=== PATIENT | female | born 1950 | race Caucasian/White ===

== ENCOUNTER 2020-07-10 08:19 | Outpatient (CLI) | payer MEDICARE, SELFPAY ==
--- NOTE | 2020-07-10 08:26 | MM_ITS ---
WS: [id number] SCREENING DIGITAL MAMMOGRAM WITH CAD HISTORY: SCREENING COMPARISON: 03/14/2019, 08/04/2017 and 03/23/2016 Bilateral CC and MLO views submitted. Computer aided detection analyzed. Breast composition: There are scattered areas of fibroglandular density. Asymmetry in the upper-outer quadrant of the LEFT breast has increased in size and conspicuity since 2019. There are additional b ilateral nodules which are stable in each breast. MM/[place] [id number] IMPRESSION: BI-RADS: 0-Incomplete: Need additional imaging evaluation FOLLOW UP: Need Additional Imaging LEFT breast: Spot compression views (CC and MLO). True ML. Ultrasound to follow if abnormality persists.
== END 2020-07-10 08:20 | disposition home or self-care (01) ==
LOC: RADSHAW 08:23
PROVIDERS: Family Provider Internal Medicine; Visit Provider Internal Medicine
DX: Z12.31 Encounter for screening mammogram for malignant neoplasm of breast (principal); N64.89 Other specified disorders of breast
CPT/HCPCS: 77067

== ENCOUNTER 2020-07-23 08:15 | Outpatient (CLI) | payer MEDICARE, SELFPAY ==
--- NOTE | 2020-07-23 08:21 | US_ITS ---
WS: [id number] ADDITIONAL VIEWS LEFT MAMMOGRAM LEFT BREAST ULTRASOUND HISTORY: INCONCLUSIVE MAMMO COMPARISON: 07/10/2020 and 03/14/2019 and 08/04/2017 LEFT MAMMOGRAM: Spot compression views and true ML. Asymmetry in the upper outer quadrant of the LEFT breast nearly completely resolves. There is persist ent linear increased density on the MLO projection only. Additional benign lymph node in the upper ou ter quadrant. LEFT BREAST ULTRASOUND 2-D and color Doppler imaging submitted. No suspicious masses or shadowing identified by ultrasound in the upper outer quadrant. There is a be nign lymph node at 1:00. US/US breast LT limited* [id number] IMPRESSION: BI-RADS: 2-Benign FOLLOW UP: 1 Year Follow-up
== END 2020-07-23 08:16 | disposition home or self-care (01) ==
LOC: RADSHAW 08:18
PROVIDERS: Family Provider Internal Medicine; PCP Internal Medicine; Visit Provider Internal Medicine
DX: R92.2 Inconclusive mammogram (principal); N64.89 Other specified disorders of breast
CPT/HCPCS: 76642; 77065

== ENCOUNTER 2020-12-24 12:59 | Outpatient (CLI) | payer MEDICARE, SELFPAY ==
--- NOTE | 2020-12-24 13:08 | XR_ITS ---
WS: [id number] DEXA (DUAL ENERGY X-RAY ABSORPTIOMETRY) Bone mineral density was performed using a [employer] machine. HISTORY: POST MENOPAUSAL COMPARISON: None available. Left forearm BMD: 0.942 g/cm2. T score: 0.8 Z score: 2.7 Total hip BMD: Left: 0.911 g/cm2. T score: -0.8 Z score: 0.0 Right: 0.847 g/cm2. T score: -1.3 Z score: -0.5 10 year probability of a major osteoporotic fracture is 10%. XR/XR DEXA axial skeleton* [id number] IMPRESSION: OSTEOPENIA based upon the WHO classification for females.
== END 2020-12-24 13:00 | disposition home or self-care (01) ==
PROVIDERS: PCP Internal Medicine; Visit Provider Physician Assistant
DX: Z78.0 Asymptomatic menopausal state (principal); M85.80 Other specified disorders of bone density and structure, unspecified site
CPT/HCPCS: 77080

== ENCOUNTER 2021-09-25 08:40 | Outpatient (CLI) | payer MEDICARE, SELFPAY ==
--- NOTE | 2021-09-25 08:55 | MM_ITS ---
WS: [id number] VIEWS: MLO and CC views both breasts. 3D digital tomosynthesis is also included in this exam. Comparison made with prior exam of 03/15/2015, 03/23/2016, 08/04/2017, 03/14/2019, 07/10/2020.. Findings: There was no sign of mass, architectural distortion or suspicious calcification in either breast. Sc attered fibroglandular densities MM/[place] [id number] Impression: BI-RADS: 2-Benign FOLLOW-UP: 1 Year Follow-up This mammogram was also analyzed by the Computer Aided Detection System R2 Imag e Sales Designer.
== END 2021-09-25 08:41 | disposition home or self-care (01) ==
PROVIDERS: PCP Internal Medicine; Visit Provider Internal Medicine
DX: Z12.31 Encounter for screening mammogram for malignant neoplasm of breast (principal)
CPT/HCPCS: 77063; 77067

== ENCOUNTER 2022-10-09 07:58 | Outpatient (CLI) | payer MEDICARE, SELFPAY ==
--- NOTE | 2022-10-09 08:08 | MM_ITS ---
WS: [id number] BILATERAL SCREENING DIGITAL TOMOSYNTHESIS MAMMOGRAM WITH CAD HISTORY: SCREENING COMPARISON: 09/25/2021, 07/10/2020 Bilateral CC and MLO views with tomosynthesis and synthetic mammography submitted. Computer aided det ection analyzed. Breast composition: There are scattered areas of fibroglandular density. No suspicious masses, microc alcifications or architectural distortion. Bilateral well circumscribed breast masses are probably ly mph nodes. No suspicious mass or calcification. MM/[place] [id number] IMPRESSION: BI-RADS: 2-Benign FOLLOW UP: 1 Year Follow-up
== END 2022-10-09 07:59 | disposition home or self-care (01) ==
PROVIDERS: PCP Internal Medicine; Visit Provider Internal Medicine
DX: Z12.31 Encounter for screening mammogram for malignant neoplasm of breast (principal)
CPT/HCPCS: 77063; 77067

== ENCOUNTER 2023-09-24 12:27 | Outpatient (CLI) | payer MEDICARE, SELFPAY ==
--- NOTE | 2023-09-24 12:31 | XR_ITS ---
WS: [id number] DEXA (DUAL ENERGY X-RAY ABSORPTIOMETRY) Bone mineral density was performed using a [employer] machine. HISTORY: POSTMENOPAUSAL COMPARISON: 12/24/2020 Left forearm BMD: 0.849 g/cm2. T score: -0.3 Z score: 1.9 Total hip BMD: Left: 0.909 g/cm2. T score: -0.8 Z score: 0.3 Right: 0.818 g/cm2. T score: -1.5 Z score: -0.4 10 year probability of a major osteoporotic fracture is 10.8%. Compared to the prior study from 12/24/2020. LEFT forearm bone mineral density has decreased by 9.9%. Bilateral hips bone mineral density has decreased by 1.7%. XR/XR DEXA axial skeleton* [id number] IMPRESSION: OSTEOPENIA based upon the WHO classification for females. Significant decrease in bone mineral density within the LEFT forearm since the prior study.
== END 2023-09-24 12:28 | disposition home or self-care (01) ==
LOC: RAD 12:27
PROVIDERS: PCP Internal Medicine; Visit Provider Internal Medicine
DX: Z78.0 Asymptomatic menopausal state (principal); M85.80 Other specified disorders of bone density and structure, unspecified site
CPT/HCPCS: 77080

== ENCOUNTER 2023-10-14 09:23 | Outpatient (CLI) | payer MEDICARE, SELFPAY ==
--- NOTE | 2023-10-14 09:33 | MM_ITS ---
WS: [id number] BILATERAL SCREENING DIGITAL TOMOSYNTHESIS MAMMOGRAM WITH CAD HISTORY: SCREENING COMPARISON: 10/09/2022, 09/25/2021 and 08/04/2017 Bilateral CC and MLO views with tomosynthesis and synthetic mammography submitted. Computer aided det ection analyzed. Breast composition: There are scattered areas of fibroglandular density. No suspicious masses, microc alcifications or architectural distortion. Bilateral well-circumscribed breast masses are reidentifie d. These are probably lymph nodes. No suspicious mass or calcification. MM/[place] [id number] IMPRESSION: BI-RADS: 2-Benign FOLLOW UP: 1 Year Follow-up
== END 2023-10-14 09:24 | disposition home or self-care (01) ==
LOC: RAD 09:24
PROVIDERS: PCP Internal Medicine; Visit Provider Internal Medicine
DX: Z12.31 Encounter for screening mammogram for malignant neoplasm of breast (principal); R92.323 Mammographic fibroglandular density, bilateral breasts; N63.20 Unspecified lump in the left breast, unspecified quadrant; N63.10 Unspecified lump in the right breast, unspecified quadrant
CPT/HCPCS: 77063; 77067

== ENCOUNTER → 2025-02-15 08:29 | Outpatient (BNVA) | payer MEDICARE, SELFPAY | PROVIDERS: PCP Internal Medicine; Referring Provider Electrodiagnostic Medicine; Visit Provider Specialist | DX: R20.0 Anesthesia of skin (principal); R20.2 Paresthesia of skin; M79.642 Pain in left hand | CPT/HCPCS: 95911 ==

== ENCOUNTER 2025-03-01 09:53 | Outpatient (CLI) | payer MEDICARE, SELFPAY ==
--- NOTE | 2025-03-01 09:59 | MM_ITS ---
WS: [id number] BILATERAL SCREENING DIGITAL TOMOSYNTHESIS MAMMOGRAM WITH CAD HISTORY: SCREENING COMPARISON: 10/14/2023, 10/09/2022, 03/14/2019 Bilateral CC and MLO views with tomosynthesis and synthetic mammography submitted. Computer aided detection analyzed. Breast composition: There are scattered areas of fibroglandular density. No suspicious masses, microcalcifications or architectural distortion. Long-term stability 7 mm well-circumscribed mass in the lateral inferior RIGHT breast. Benign lymph node upper outer quadrant LEFT breast. MM/MM scr tomosynthesis [id number] IMPRESSION: BI-RADS: 2 - Benign. FOLLOW UP: 1 Year Follow-up
== END 2025-03-01 09:54 | disposition home or self-care (01) ==
LOC: RAD 09:54
PROVIDERS: PCP Electrodiagnostic Medicine; Visit Provider Electrodiagnostic Medicine
DX: Z12.31 Encounter for screening mammogram for malignant neoplasm of breast (principal); R92.323 Mammographic fibroglandular density, bilateral breasts; N63.13 Unspecified lump in the right breast, lower outer quadrant; D36.0 Benign neoplasm of lymph nodes
CPT/HCPCS: 77063; 77067

== ENCOUNTER → 2025-03-13 10:15 | Outpatient (BNVA) | payer MEDICARE, SELFPAY | PROVIDERS: PCP Electrodiagnostic Medicine; Visit Provider Physician Assistant | DX: G56.03 Carpal tunnel syndrome, bilateral upper limbs (principal); G56.22 Lesion of ulnar nerve, left upper limb | CPT/HCPCS: 73130; 99204 ==

== ENCOUNTER 2025-04-23 06:59 | Day surgery (SDC) | payer MEDICARE, SELFPAY ==
[2025-04-23] VITALS (10 sets, daily range): BP systolic 128–177; BP diastolic 55–92; PULSE 64–86; RESP 12–20; TEMP 36.1–36.6; O2SAT 91–99; BMI 30.7
[2025-04-23] MEDS: acetaminophen 1,000 MG/100 ML PIGGYBACK 400 MG IV (07:31)
--- NOTE | 2025-04-23 07:49 | ANES.PREANE2 ---
Pre-Anesthetic Assessment Height/Weight: Height 5 ft 6 in Weight 190 lb Temp Pulse Resp BP Pulse Ox O2 Del Method 97.0 F L 81 17 128/80 95 Room Air 04/23/25 07:17 04/23/25 07:17 04/23/25 07:17 04/23/25 07:17 04/23/25 07:17 04/23/25 07:17 Preop Diagnosis: carapl/cubital tunnel syndrome Operation Date: 04/23/25 08:35 Proposed Procedures p Carpal Tunnel Release(Left) - Thomas Samantha, DO s Cubital Tunnel Release(Left) - Thomas Samantha, DO s Ulnar Nerve Transposition(Left) - Thomas Samantha, DO Was Beta Salvatore taken within 24 hours: N/A Was Clonidine taken within 24 hours: N/A Last intake: Intake Last Liquid Date 04/22/25 Last Liquid Time 07:30 Last Solid Date 04/22/25 Last Solid Time 07:30 Social No alcohol and No tobacco Exam alert, oriented x 3, clear to auscultation bilaterally and regular rate & rhythm Airway Submandibular: within normal limits Cervical ROM: within normal limits Mallampati: Class III Dentition: full Anesthetic Plan ASA status: 2 Anesthesia: MAC and Regional (specify below) Other: History of PONV NPO since yesterday evening History of GERD on Pepcid BMI 30 Hypertension on Amoride?HCTZ. Preop BP 128/80 Plan for MAC anesthesia with preop nerve block. Will wait to let nerve block set up to help with PONV and avoid general if possible Medications/Allergies Home Medications ?Medication ?Instructions ?Recorded ?Confirmed ?Last Taken ?Type alprazolam 0.5 mg tablet 0.5 mg PO TID 03/13/25 04/23/25 04/23/25 History amiloride 5 mg-hydrochlorothiazide 1 tab PO DAILY 03/13/25 04/23/25 04/22/25 History 50 mg tablet atorvastatin 20 mg tablet (Lipitor) 20 mg PO QPM 03/13/25 04/23/25 04/22/25 History brimonidine 0.1 % eye drops 1 drp ophthalmic (eye) Q8H 03/13/25 04/23/25 04/22/25 History escitalopram oxalate 10 mg tablet 10 mg PO DAILY 03/13/25 04/23/25 04/22/25 History famotidine 20 mg tablet 20 mg PO DAILY 03/13/25 04/23/25 04/22/25 History gabapentin 400 mg capsule 400 mg PO BID 03/13/25 04/23/25 04/22/25 History latanoprost 0.005 % eye drops 1 drp ophthalmic (eye) DAILY 03/13/25 04/23/25 04/22/25 History montelukast 10 mg tablet 10 mg PO DAILY 03/13/25 04/23/25 04/22/25 History naproxen 500 mg tablet 500 mg PO BID 03/13/25 04/19/25 Unknown History nitrofurantoin macrocrystal 100 mg 100 mg PO Q24H 03/13/25 04/23/25 04/22/25 History capsule nortriptyline 50 mg capsule 50 mg PO DAILY 03/13/25 04/23/25 04/22/25 History sertraline 25 mg tablet 25 mg PO DAILY 03/13/25 04/23/25 04/22/25 History trazodone 150 mg tablet 150 mg PO DAILY 03/13/25 04/23/25 04/22/25 History Allergies Allergy/AdvReac Type Severity Reaction Status Date / Time meperidine (From Demerol) Allergy nausea Verified 03/13/25 10:22 nickel Allergy rash Verified 03/13/25 10:22 Current Medications Generic Name Dose Route Start Last Admin Trade Name Freq PRN Reason Stop Dose Admin Sodium Chloride 1,000 mls @ 30 mls/hr 04/23/25 07:15 04/23/25 07:31 Sodium Chloride 0.9% IV 04/24/25 07:14 30 mls/hr .Q24H LUISITO Administration PFSH Anesthesia Social History Smoking and tobacco/nicotine status: never used tobacco/nicotine
--- NOTE | 2025-04-23 10:02 | W.PM.OPSFHP ---
Same Day Surgery H&P Indication for Procedure/HPI DATE OF PROCEDURE: April 23, 2025 CHIEF COMPLAINT/INDICATIONFOR SURGICAL PROCEDURE: Left carpal tunnel syndrome, left cubital tunnel syndrome PREOP DIAGNOSIS: Left carpal/cubital tunnel syndrome PLANNED PROCEDURE: Operation Date: 04/23/25 08:35 Proposed Procedures p Carpal Tunnel Release(Left) - Thomas Samantha, DO s Cubital Tunnel Release(Left) - Thomas Chittenden, DO s Ulnar Nerve Transposition(Left) - Thomas Samantha, DO Medications/Allergies* Home Medications ?Medication ?Instructions ?Recorded ?Confirmed ?Type alprazolam 0.5 mg tablet 0.5 mg PO TID 03/13/25 04/23/25 History amiloride 5 mg-hydrochlorothiazide 1 tab PO DAILY 03/13/25 04/23/25 History 50 mg tablet atorvastatin 20 mg tablet (Lipitor) 20 mg PO QPM 03/13/25 04/23/25 History brimonidine 0.1 % eye drops 1 drp ophthalmic (eye) Q8H 03/13/25 04/23/25 History escitalopram oxalate 10 mg tablet 10 mg PO DAILY 03/13/25 04/23/25 History famotidine 20 mg tablet 20 mg PO DAILY 03/13/25 04/23/25 History gabapentin 400 mg capsule 400 mg PO BID 03/13/25 04/23/25 History latanoprost 0.005 % eye drops 1 drp ophthalmic (eye) DAILY 03/13/25 04/23/25 History montelukast 10 mg tablet 10 mg PO DAILY 03/13/25 04/23/25 History naproxen 500 mg tablet 500 mg PO BID 03/13/25 04/19/25 History nitrofurantoin macrocrystal 100 mg 100 mg PO Q24H 03/13/25 04/23/25 History capsule nortriptyline 50 mg capsule 50 mg PO DAILY 03/13/25 04/23/25 History sertraline 25 mg tablet 25 mg PO DAILY 03/13/25 04/23/25 History trazodone 150 mg tablet 150 mg PO DAILY 03/13/25 04/23/25 History Allergies/Adverse Reactions Allergy/AdvReac Type Severity Reaction Status Date / Time meperidine (From Demerol) Allergy nausea Verified 03/13/25 10:22 nickel Allergy rash Verified 03/13/25 10:22 Current Medications: Generic Name Dose Route Start Last Admin Trade Name Odalis PRN Reason Stop Dose Admin Sodium Chloride 1,000 mls @ 30 mls/hr 04/23/25 07:15 04/23/25 07:31 Sodium Chloride 0.9% IV 04/24/25 07:14 30 mls/hr .Q24H LUISITO Administration Pertinent History/Comorbid Conditions* Social History Smoking and tobacco/nicotine status: never used tobacco/nicotine Pertinent Exam Findings alert, oriented x 3, operative site marked and procedure specific exam findings Please refer to anesthesia proof for preoperative evaluation for heart and lung findings Please refer to detailed orthopedic examination on 03/13/2025 listed below: bilateral Hand exam-positive Tinel's and positive Phalen's test. thenar atrophy and thenar muscle weakness noted. Full range of motion in fingers and wrist and fingers are warm and well-perfused with normal cap refill under 2 seconds. Radial pulse 2+, intrinsic muscle weakness noted on left hand. No A1 hebert tenderness no mechanical locking or catching of fingers. Positive CMC grind test of both thumbs with tenderness at base of thumbs. Left Elbow exam-positive Tinel's test Right Elbow exam-negative Tinel's test Recommendations Risks and benefits of procedure reviewed and Patient/family agree to proceed Surgery/Procedure today Other Plans: Patient here today to proceed with a left carpal tunnel release and left cubital tunnel release with possible nerve transposition. Patient understands the ins and outs procedure the risk benefits complication alternative surgical nonsurgical treatment options. Understanding risk of surgery patient elects proceed with surgical invention. All questions answered at this time. Coding Level of Care Code Acute Code for [facility] [place]
[2025-04-23] MEDS: ceFAZolin 2,000 MG in sodium chloride 0.9% (plus) 50 ML 100 MG IV (11:25)
--- NOTE | 2025-04-23 11:25 | W.PM.BPON ---
Date of Procedure: 04/23/2025 Surgeon: Thomas Singh DO [employer] Driver(s): CRISTINA Gonsales Procedure(s) performed: Left carpal tunnel release Left cubital tunnel release (ulnar nerve decompression at the elbow) Findings of the procedure(s): Underwent procedure as planned without issues or complications, elbow taken through range of motion no subluxation of the ulnar nerve as a result no transposition performed. Patient placed in dressing and sling and taken to recovery stable condition. Estimated blood loss: 5 mL Specimen(s) removed: None Post-operative diagnosis: Left carpal tunnel syndrome, left cubital tunnel syndrome
--- NOTE | 2025-04-23 11:26 | P.OP_ITS ---
Operative Report Date of procedure: April 23, 2025 Surgeon: Thomas Singh DO Ultrasound Manager: CRISTINA Gonsales Procedure: Preoperative diagnosis: Left carpal tunnel syndrome, left cubital tunnel syndrome Postoperative diagnosis same Procedure done: Left carpal tunnel release Left cubital tunnel release (ulnar nerve decompression at the elbow) Surgeon: Thomas Singh DO Estimated blood loss: 5 mL Tourniquet 16 minutes IV fluids: 500mL Complications: None Findings: See operative report narrative Condition: stable Disposition: same day Brief History: Patient's been seen and worked up in the outpatient setting and findings consistent with preoperative diagnosis.? Patient has left carpal tunnel syndrome as well as left?cubital tunnel syndrome which has been worked up in the outpatient setting has physical exam findings consistent with this as well as confirmatory nerve conduction/EMG nerve conduction study consistent with diagnosis. As result through shared decision making agreed to proceed with? left carpal tunnel and left?cubital tunnel release with possible ulnar nerve transposition we talked about treatment options as far as nonoperative and operative intervention.? Understands risk benefits complication alternatives surgical nonsurgical treatment options.? Understanding risks pt agrees to proceed with surgical intervention. Understanding these risks pt agrees to proceed with surgery.? Consent obtained in preop. Procedure: Patient seen evaluate in the preoperative holding area.? Consent was reviewed and signed with patient.? Correct extremity marked.? Patient seen evaluated by anesthesia department once cleared for surgery was then taken back to the operative suite placed in supine position all bony prominences well-padded patient properly secured to bed.? left upper extremity placed onto armboard.? Nonsterile tourniquet applied left upper arm.? Patient then underwent anesthesia per the anesthesia department.? Patient's left upper extremity was then prepped and draped in standard orthopedic fashion.? Final timeout performed.? Patient received appropriate preoperative antibiotics. Esmarch was used exsanguinate the left upper extremity.? Tourniquet was insufflated to 250 mmHg. I started with the carpal tunnel release first.? I made a standard open carpal tunnel release starting with the distal most extent in the palm at the Vizcaino's cardinal line and the incision line was made in line with the fourth ray and ended just distal to the wrist crease.? Sharp scalpel incision was made through skin and subcutaneous tissue I then utilizing self retainer then began to dissect with dissection scissors split longitudinally the palmar fascia.? Next I then utilizing my senior sales assistant Kasdan retractors subsequently utilizing scalpel feathered through the palmaris brevis as well as through the transverse carpal ligament distally.? Once I encountered the floor of the transverse carpal ligament and entered into the carpal tunnel I then switched to dissection scissors.? Carefully released the distal extent of the transverse carpal ligament to the palmar fat.? Care was to protect the recurrent branch and not injured this during this part of the case.? Next I then placed a Lyons underneath the transverse carpal ligament proximally to protect the nerve in the carpal tunnel contents.? And then I subsequently under loupe magnification utilize my dissection scissors to release the transverse carpal ligament into the antebrachial fascia under direct visualization with care to keep my scissors with a curved ulnarly away from the palmar cutaneous branch.? The transverse carpal was then completely decompressed proximally and a Lyons was then placed both distally and proximally throughout the carpal tunnel and had complete decompression of the nerve.? The nerve did appear to have hourglass shape as it went through the carpal tunnel.? With significant irritation noted around the nerve.? No masses were noted within the contents of the carpal tunnel.? This completed the carpal tunnel release and then I subsequently irrigated the wound bed and placed a wet Ray-Demond into the incision for later closure. Next marked out the landmarks of the left elbow of the medial epicondyle and olecranon and made a curvilinear incision following the course of the ulnar nerve at the medial aspect of the elbow.? Sharp scalpel incision was made through skin and subcutaneous tissue.? Next I switched to Littler dissection scissors and spread in plane of the medial antebrachial cutaneous nerve branching which was protected throughout this part of the dissection.? Then I directly came down over the fascia and identified the 2 heads of the FCU fascia and split this left in the middle and subsequently identified my ulnar nerve distally.? This was then completely released distally under direct visualization and loupe magnification.? Once the nerve was then identified I then subsequently tracked this proximally and released this through Asif's ligament as well as complete decompression of the nerve proximally all the way past the intermuscular septum.? The nerve was completely released and decompressed both proximally and distally.? Ulnar nerve neurolysis performed and completed both proximally and distally with dissection scissors.? I then took the elbow through range of motion and there was no instability or subluxating of the ulnar nerve.? This completed?cubital tunnel release.? Next the wound bed was thoroughly irrigated.? Tourniquet was deflated.? Hemostasis was satisfactory at the?cubital tunnel release surgery site. I then inspected the carpal tunnel incision and this was found to have satisfactory hemostasis and all this was maintained through bipolar electrocautery.? At this point time I sequentially closed?cubital tunnel site with 3-0 Vicryl suture in a running horizontal mattress nylon stitch.? ? The carpal tunnel release surgery was then closed in standard interrupted mattress fashion.? Dressing was Xeroform 4 x 4's ABD Curlex soft roll and an Apolinar wrap has a bulky soft dressing. Patient was then awakened from anesthesia and taken to PACU in stable condition. Disposition: Patient taken to PACU in stable condition recovering well.? Patient will receive appropriate discharge instructions as well as pain medication postoperatively.? We will follow-up with ortho in the office in 2 weeks.? Patient understands agrees with current plan.? All questions answered.? Pt understands if any questions or concerns and contact the office for follow-up appointment.
--- NOTE | 2025-04-23 12:50 | ANE.PACU2 ---
Inpatient post-anesthesia follow up: Airway intact: Yes Vital signs: Temperature 97.2 F Pulse Rate 84 Respiratory Rate 18 Blood Pressure 156/89 Pulse Oximetry 93 Oxygen Delivery Me thod Room Air Oxygen Flow Rate 8 Fraction of Inspir ed Oxygen Hydration adequate: Yes Nausea and vomiting: No Pain level: 1 Mental status: Baseline
== END 2025-04-23 12:50 | disposition home or self-care (01) ==
PROVIDERS: PCP Electrodiagnostic Medicine; Visit Provider Student in an Organized Health Care Education/Training Program
PROC: (CPT 64721; principal; 2025-04-23 08:35)
PROC: (CPT 64718; 2025-04-23 08:35)
DX: G56.02 Carpal tunnel syndrome, left upper limb (principal); G56.22 Lesion of ulnar nerve, left upper limb; K21.9 Gastro-esophageal reflux disease without esophagitis; I10 Essential (primary) hypertension
CPT/HCPCS: 64718; 64721; J0131; J0690; J1100; J1885; J2405; J2704; J3010; J3490; J7030; J9999